=== PATIENT | female | born 1940 | race Native Hawaiian/Other Pacific Islander ===

== ENCOUNTER 2016-07-28 12:56 | Outpatient (CLI) | payer OTHER | END 2016-07-28 19:15 | disposition home or self-care (01) | LOC: MAMMO 12:56 | DX: Z12.31 Encounter for screening mammogram for malignant neoplasm of breast (principal) | CPT/HCPCS: G0202-TC ==

== ENCOUNTER 2016-09-28 14:45 | Outpatient (CLI) | payer OTHER | END 2016-09-28 19:13 | disposition home or self-care (01) | LOC: RAD 14:45 | DX: M25.511 Pain in right shoulder (principal) ==

== ENCOUNTER 2017-02-20 17:59 | Emergency (ER) | payer OTHER ==
[~2017-02-20] VITALS: Ht 160 cm; Wt 46.7 kg
[2017-02-20 18:03] VITALS: TEMP 98.6
[2017-02-20 18:40] VITALS: BP 148/76
== END 2017-02-20 19:00 | disposition home or self-care (01) ==
LOC: ED 17:59
DX: S42.002A Fracture of unspecified part of left clavicle, initial encounter for closed fracture (principal); W18.09XA Striking against other object with subsequent fall, initial encounter; Y92.098 Other place in other non-institutional residence as the place of occurrence of the external cause
CPT/HCPCS: 96372; 99283; J1885

== ENCOUNTER 2017-09-22 18:10 | Emergency (ER) | payer OTHER ==
[~2017-09-22] VITALS: Ht 160 cm; Wt 63.0 kg
[2017-09-22] MEDS ORDERED: HYDR25TA60 PO (18:28)
[2017-09-22] MEDS ORDERED: LIPITOR10 MG PO (18:28)
[2017-09-22] MEDS ORDERED: MECLIZINE25 MG PO (18:29)
[2017-09-22] MEDS ORDERED: ASA LOW DOSE81 MG PO (18:29)
[2017-09-22] MEDS ORDERED: ZYRTEC ALLERGY10 M1 PO (18:29)
[2017-09-22] MEDS ORDERED: PHEN50CH2 PO (18:30)
[2017-09-22] MEDS ORDERED: ALBU90AE13 INH (18:31)
[2017-09-22] MEDS ORDERED: AMLODIPINE BESYLATE PO (18:31)
[2017-09-22] MEDS ORDERED: FLONASE AL50 MCG/ACT (18:32)
[2017-09-22] MEDS ORDERED: STOOL SOFTNR100 M1 OR (18:32)
[2017-09-22] MEDS ORDERED: ERYTOIN OP (18:32)
[2017-09-22 20:33] VITALS: BP 168/82; TEMP 98.4
== END 2017-09-22 20:20 | disposition home or self-care (01) ==
LOC: ED 18:10
DX: M25.562 Pain in left knee (principal); W18.39XA Other fall on same level, initial encounter; Y92.89 Other specified places as the place of occurrence of the external cause
CPT/HCPCS: 99283; J1885

== ENCOUNTER 2017-11-26 12:40 | Outpatient (CLI) | payer OTHER ==
[~2017-11-26 12:40] MED LIST: ALBU90AE13 INH; AMLODIPINE BESYLATE PO; ASA LOW DOSE81 MG PO; ERYTOIN OP; FLONASE AL50 MCG/ACT; HYDR25TA60 PO; LIPITOR10 MG PO; MECLIZINE25 MG PO; PHEN50CH2 PO; STOOL SOFTNR100 M1 OR; ZYRTEC ALLERGY10 M1 PO
== END 2017-11-26 19:40 | disposition home or self-care (01) ==
LOC: RAD 12:40
DX: M25.562 Pain in left knee (principal)

== ENCOUNTER 2018-02-15 13:56 | Outpatient (CLI) | payer OTHER | END 2018-02-15 22:20 | disposition home or self-care (01) | LOC: RAD 13:56 | DX: M25.552 Pain in left hip (principal) ==

== ENCOUNTER 2018-05-09 16:26 | Observation (INO) | payer OTHER ==
[~2018-05-09] VITALS: Ht 160 cm; Wt 60.0 kg
[2018-05-09 20:00] VITALS: BP 157/77; TEMP 98.8
[2018-05-09 20:26] LABS: PLATELET COUNT 189 K/uL (152-353)
[2018-05-09 20:38] LABS: POTASSIUM 3.2 mmol/L (3.6-5.2); SODIUM 136 mmol/L (136-145)
[2018-05-09 20:50] VITALS: BP 165/67; TEMP 98.3; Ht 160 cm; Wt 60.0 kg
--- NOTE | 2018-05-09 23:35 | NUR ---
05/09/182149 DR. JAMES NOTIFIED OF PATIENTS LABS AND CHEST EXRAY,NEW ORDER RECEIVED TO ADD DX COPD EXACERBATION TO HER CHART.ALSO NEW ORDERS RECEIVED TO GIVE DOSE OF MAGNESIUM AND DOSE OF POTASSIUM.ALSO MAY START HOME MEDICATIONS.CC
[2018-05-10] VITALS: BP 95/40; TEMP 98.9
--- NOTE | 2018-05-10 00:21 | NUR ---
04/30/18 0020 RESTING ON RT SIDE RESP EVEN NONLABORED COUGHING NONPRODUCTIVE.NAD NOTED.CC
--- NOTE | 2018-05-10 02:46 | NUR ---
05/10/18 0245 RESTING QUEITLY WITH EYES CLOSED RESP EVEN NONLABORED NAD NOTED.IV FLUIDS INFUSING WITHOUT DIFFICULTY.CC
[2018-05-10 04:00] VITALS: BP 105/45; TEMP 98.8
--- NOTE | 2018-05-10 04:15 | NUR ---
Patient is on a CLD and was admitted with diagnosis of Influenza A, Dehydration, and COPD. IBW 115+/-10% and is 112% IBw and BMI 22.8 wnl's, Kcal needs 0874-5743 kcal/day, Protein Needs 59-69 grams and fluid needs 1700+++ d/t dx. dehydration. Recommendastions: 1-Increase fluids as tolerated. Goal eating 75% of meals and on a advanced diet. 2- Advnace MITCHELL.
[2018-05-10 04:39] LABS: PLATELET COUNT 196 K/uL (152-353)
[2018-05-10 04:52] LABS: POTASSIUM 3.4 mmol/L (3.6-5.2)
--- NOTE | 2018-05-10 05:01 | NUR ---
05/10/18 0500 PT AWAKE TALKING COUGHING NONPRODUCTIVE COUGH.NAD NOTED.CC
--- NOTE | 2018-05-10 06:09 | NUR ---
05/10/18 0610 RESTING ON RT SIDE NAD NOTED.CC
[2018-05-10 07:52] VITALS: BP 120/48; TEMP 98.5
[2018-05-10 11:50] VITALS: BP 111/50; TEMP 98.9
[2018-05-10 15:54] VITALS: BP 109/47; TEMP 98.4
[2018-05-10 20:25] VITALS: BP 145/61; TEMP 98
[2018-05-11 00:22] VITALS: BP 125/57; TEMP 98.3
[2018-05-11 03:57] VITALS: BP 109/53; TEMP 98.4
[2018-05-11 05:25] LABS: PLATELET COUNT 177 K/uL (152-353)
[2018-05-11 08:17] VITALS: BP 137/57; TEMP 98.1
--- NOTE | 2018-05-11 10:22 | NUR ---
1015 JOHANNA FROM PHARMACY INFORMED JENIFFER QUIJANO, RN THAT [facility] DOES NOT HAVE ENOUGH TAMIFLU 30MG AT THIS TIME TO SEND HOME WITH PT TO FINISH OUT DOSE. 1020 DR. JAMES NOTIFIED THAT WE DO NOT HAVE ENOUGH TAMIFLU 30MG TO SEND HOME WITH PT. DR. JAMES TOLD ME TO CONSULT WITH PHARMACIST AND SEE WHAT IS RECOMMENED. 1025 SPOKE WITH JOHANNA, PHARMACIST ABOUT PT TAMIFLU. JOHANNA INFORMED ME THAT SHE WOULD CALL DR. JAMES
--- NOTE | 2018-05-11 11:28 | NUR ---
1000 DISCHARGE ORDERS REC'D. 1130 PT IV DC'D
[2018-05-11 12:11] VITALS: BP 161/55; TEMP 98
== END 2018-05-11 15:10 | disposition home or self-care (01) ==
LOC: MED/SURG 16:26
PROVIDERS: ADMIT Family Medicine
DX: J09.X2 Influenza due to identified novel influenza A virus with other respiratory manifestations (principal); J44.1 Chronic obstructive pulmonary disease with (acute) exacerbation; R51 Headache; I10 Essential (primary) hypertension; E86.0 Dehydration
CPT/HCPCS: 36415; 80053; 81000; 82550; 82553; 83605; 83735; 84100; 84484; 85027; 87040; 93005; 96365; 96366; 99220; G0378; G0379

== ENCOUNTER 2018-10-22 01:45 | Emergency (ER) | payer OTHER ==
[~2018-10-22] VITALS: Ht 160 cm; Wt 63.5 kg
[2018-10-22 01:50] VITALS: TEMP 98.1
[2018-10-22] MEDS ORDERED: PHENYTOIN EX100 MG PO (02:09)
[2018-10-22 02:49] LABS: PLATELET COUNT 240 K/uL (152-353)
[2018-10-22 02:57] LABS: POTASSIUM 3.1 mmol/L (3.6-5.2); SODIUM 140 mmol/L (136-145)
[2018-10-22 03:52] VITALS: BP 138/62
== END 2018-10-22 03:52 | disposition home or self-care (01) ==
LOC: ED 01:45
PROVIDERS: Family Medicine
DX: I20.8 Other forms of angina pectoris (principal); E87.6 Hypokalemia; I48.91 Unspecified atrial fibrillation
CPT/HCPCS: 36415; 80053; 82550; 84484; 85027; 93005; 99284

== ENCOUNTER 2018-11-07 10:12 | Outpatient (CLI) | payer OTHER ==
[~2018-11-07 10:12] MED LIST changes: +PHENYTOIN EX100 MG PO
== END 2018-11-08 05:48 | disposition home or self-care (01) ==
LOC: RAD 10:12
DX: M81.0 Age-related osteoporosis without current pathological fracture (principal)

== ENCOUNTER 2019-01-17 07:50 | Outpatient (CLI) | payer OTHER | END 2019-01-17 20:07 | disposition home or self-care (01) | LOC: NM 07:50 | DX: R07.89 Other chest pain (principal); R06.02 Shortness of breath; I10 Essential (primary) hypertension; R00.2 Palpitations; E78.49 Other hyperlipidemia | CPT/HCPCS: 93225; 93306; A9500; J2785 ==

== ENCOUNTER 2019-06-01 11:33 | Outpatient (CLI) | payer OTHER ==
[2019-06-01 11:58] LABS: PLATELET COUNT 278 K/uL (152-353)
[2019-06-01 12:43] LABS: POTASSIUM 3.1 mmol/L (3.6-5.2)
== END 2019-06-01 19:12 | disposition home or self-care (01) ==
LOC: LABW 11:33
PROVIDERS: Specialist
DX: Z01.810 Encounter for preprocedural cardiovascular examination (principal); R07.2 Precordial pain; R93.1 Abnormal findings on diagnostic imaging of heart and coronary circulation
CPT/HCPCS: 36415; 80053; 85027

== ENCOUNTER 2019-08-16 19:29 | Emergency (ER) | payer OTHER ==
[~2019-08-16] VITALS: Ht 160 cm; Wt 64.4 kg
[2019-08-16 22:48] VITALS: BP 172/88; TEMP 98.7
== END 2019-08-16 22:48 | disposition home or self-care (01) ==
LOC: ED 19:29
DX: S09.8XXA Other specified injuries of head, initial encounter (principal); S83.8X1A Sprain of other specified parts of right knee, initial encounter; S61.412A Laceration without foreign body of left hand, initial encounter; W18.39XA Other fall on same level, initial encounter; Y92.098 Other place in other non-institutional residence as the place of occurrence of the external cause
CPT/HCPCS: 90471; 90715; 96372; 99283; J1885

== ENCOUNTER 2019-10-30 14:44 | Outpatient (CLI) | payer OTHER | END 2019-10-30 20:10 | disposition home or self-care (01) | LOC: RAD 14:44 | DX: M54.6 Pain in thoracic spine (principal); M54.12 Radiculopathy, cervical region ==

== ENCOUNTER 2019-12-19 14:31 | Outpatient (CLI) | payer OTHER | END 2019-12-19 19:24 | disposition home or self-care (01) | LOC: MRI 14:31 | DX: M54.12 Radiculopathy, cervical region (principal) ==

== ENCOUNTER 2020-09-26 14:38 | Outpatient (CLI) | payer OTHER | END 2020-09-26 23:59 | disposition home or self-care (01) | LOC: RAD 14:38 | PROVIDERS: ATTEND Nurse Practitioner Family | DX: M54.5 Low back pain (principal) ==

== ENCOUNTER 2020-12-09 15:20 | Emergency (ER) | payer OTHER ==
[~2020-12-09] VITALS: Ht 160 cm; Wt 62.6 kg
[2020-12-09 19:35] VITALS: BP 132/84; TEMP 98.1
== END 2020-12-09 19:35 | disposition home or self-care (01) ==
LOC: ED 15:20
DX: J20.9 Acute bronchitis, unspecified (principal); U07.1 COVID-19; F17.210 Nicotine dependence, cigarettes, uncomplicated
CPT/HCPCS: 87502; 87635; 99283; U0003

== ENCOUNTER 2020-12-12 15:03 | Emergency (ER) | payer OTHER ==
[~2020-12-12] VITALS: Ht 160 cm; Wt 62.6 kg
[2020-12-12 15:59] LABS: POTASSIUM 3.1 mmol/L (3.6-5.2); SODIUM 135 mmol/L (136-145)
[2020-12-12 16:01] LABS: PLATELET COUNT 117 K/uL (152-353)
[2020-12-12 16:11] LABS: PARTIAL THROMBOPLASTIN TIME 26.3 SECONDS (24.5-33.6)
[2020-12-12 17:00] VITALS: TEMP 98.7
[2020-12-12 22:56] VITALS: BP 123/59
== END 2020-12-12 22:56 | disposition home or self-care (01) ==
LOC: ED 15:03
PROVIDERS: Emergency Medicine
DX: U07.1 COVID-19 (principal); J12.82 Pneumonia due to coronavirus disease 2019; J44.9 Chronic obstructive pulmonary disease, unspecified; E87.6 Hypokalemia
CPT/HCPCS: 36415; 80053; 83605; 83880; 84484; 85027; 85379; 85610; 85730; 93005; 96360; 96372; 99284; J1100; Q9963